=== PATIENT | female | born 1985 | race Caucasian/White ===

== ENCOUNTER 2022-05-08 14:19 | Emergency (ER) | payer SELFPAY ==
[2022-05-08] MEDS ORDERED: Diphtheria,Pertussis(Acell),Tetanus Vaccine 0.5 ML Syringe IM ONE (15:06)
[2022-05-08] MEDS ORDERED: Bacitracin Oint 1 GM U/D Packet TOP ONE (15:14)
== END 2022-05-08 15:21 | disposition home or self-care (01) ==
LOC: DL.ED 14:19
DX: S61.432A Puncture wound without foreign body of left hand, initial encounter (principal); S61.431A Puncture wound without foreign body of right hand, initial encounter; Z23 Encounter for immunization; W54.0XXA Bitten by dog, initial encounter; Y93.01 Activity, walking, marching and hiking
CPT/HCPCS: 73130; 90471; 90715; 99283; A9270